=== PATIENT | male | born 1995 | race Caucasian/White ===

== ENCOUNTER 2020-09-24 04:17 | Emergency (ER) | payer MEDICAID, OTHER ==
[~2020-09-24] VITALS: Ht 190.5 cm; Wt 80.4 kg
[2020-09-24] MEDS ORDERED: LORazepam 2 MG/ML, 1ML ONE ×2 (04:46→06:12)
[2020-09-24] MEDS ORDERED: ONDANSETRON 2MG/ML, 2ML ONE (04:47)
--- NOTE | 2020-09-24 04:52 | NUR ---
patient arrived via EMS for vomiting x3 days. patient vague historian during triage. he is tremulous on arrival, clammy skin, and drowsy. he is oriented x4. states "danika been binge drinking and i know if i dont get help im going to be in trouble". patient reports falling multiple times at home the past few days including this morning. reports he is bipolar, not taking his medications since may, with schizoeffective tendencies. patient states he quit his job and then started drinking. he then, later in assessment, reports his vomitus at home has been dark. i questioned if his vomitus contained blood and he states "all i can tell you is it was dark". he also reports tarry/dark stools. later in assessment he reports having abdominal pain. i had asked patient if he had any abdominal pain with the nausea and he denied this claim. patient grimacing from time to time during assessment. guarding of abdomen at times, sitting up in bed and refusing to lay back down when asked to do so for safety measures. during EMS transit, patient had declined any interventions for his pain, N/V during transit. i placed an IV with patient's permission. labs were drawn and sent to lab. IVF started. Sonia CHANDLER to bedside for assessment. he states his last drink was ~2 hours [employer] and then states when asked by Sonia CHANDLER, "i drank right before I came here". call montoya in reach.
[2020-09-24 04:53] LABS: BASOPHILS % (AUTO) 1 % (0-1); EOSINOPHILS % (AUTO) 0 % (1-7); LYMPHOCYTES % (AUTO) 17 % (22-44); MEAN CORPUSCULAR HEMOGLOBIN 31.6 pg (27.5-34.5); MEAN CORPUSCULAR HGB CONC 34.7 g/dL (33.2-36.2); MEAN PLATELET VOLUME 6.9 fL (7.4-10.4); MONOCYTES % (AUTO) 9 % (2-9); NEUTROPHILS % (AUTO) 73 % (42-75); PLATELET COUNT 286 x10^3/uL (130-400); RED CELL DISTRIBUTION WIDTH 13.6 % (9.4-14.8)
[2020-09-24] MEDS ORDERED: LORazepam 2 MG/ML, 1ML IVPush ONE ×2 (05:00→06:30)
[2020-09-24] MEDS ORDERED: ONDANSETRON 2MG/ML, 2ML IVPush ONE (05:00)
[2020-09-24] MEDS ORDERED: THIAMINE 100MG TABLET PO ONE (05:00)
[2020-09-24] MEDS ORDERED: SODIUM CHLORIDE FLUSH 10ML SYR IVF ONE (05:00)
[2020-09-24] MEDS ORDERED: SODIUM CHLORIDE 0.9% 1,000ML IVBOLUS ONE ×2 (05:00→06:00)
[2020-09-24] MEDS ORDERED: PLEASE ENTER ALLERGIES MC SCH (05:00)
--- NOTE | 2020-09-24 05:02 | NUR ---
patient found to be 89% on RA after medication given. patient also laying in bed in odd position that may be contributing to this. 2L via NC applied to patient. O2 saturation increased to 96%. patient easily arousable at this time
[2020-09-24 05:04] LABS: ALANINE AMINOTRANSFERASE 29 U/L (12-78); ALBUMIN 4.7 g/dL (3.4-5.0); ANION GAP 15 mmol/L (5-15); CALCIUM 9.6 mg/dL (8.5-10.1); CHLORIDE 96 mmol/L (98-107); CREATININE 1.16 mg/dL (0.7-1.3)
[2020-09-24 05:06] LABS: ALKALINE PHOSPHATASE 126 U/L (45-117); BILIRUBIN,TOTAL 0.7 mg/dL (0.2-1.0); MD NO; TOTAL PROTEIN 8.6 g/dL (6.4-8.2)
--- NOTE | 2020-09-24 05:20 | NUR ---
water placed at bedside and RN requested patient try to drink some water. patient refusing to do PO challenge.
--- NOTE | 2020-09-24 05:52 | NUR ---
dr. sarabia and hina CHANDLER notified
[2020-09-24] MEDS ORDERED: METOCLOPRAMIDE 5 MG/ML, 2ML ONE (05:55)
[2020-09-24] MEDS ORDERED: METOCLOPRAMIDE 5 MG/ML, 2ML IVPush ONE (06:00)
[2020-09-24] MEDS ORDERED: PANTOPRAZOLE 40 MG IV ONE (06:12)
--- NOTE | 2020-09-24 06:25 | NUR ---
dr. sarabia and hina CHANDLER notified of patient continuing to have moderate tremors, dry heaves and not tolerating PO trial at this time. additional medication administered. VS remain stable on 1L via NC. patient easily arousable, moves all extremities, changes positon independently on gurney. bed rails up for safety. bed continues to be in trendelenberg for safety due to patient on arrival not following instruction to sit back in bed. call montoya in reach. urinal placed on bed rail in reach and patient notified of this being provided. will continue to monitor
[2020-09-24] MEDS ORDERED: THIAMINE 200 MG in SODIUM CHLORIDE 0.9% 50 ML IV ONE (06:30)
[2020-09-24] MEDS ORDERED: PANTOPRAZOLE 40 MG IV IVPush ONE (06:30)
--- NOTE | 2020-09-24 06:58 | NUR ---
bedside report recieved from Annia IBANEZ, VSS, NADN.
--- NOTE | 2020-09-24 06:58 | NUR ---
bedside report given to Lillie IBANEZ and Malinda IBANEZ
[2020-09-24] MEDS ORDERED: MAALOX/HYOSCYAMINE/LIDOCAINE 45 ML BTL PO ONE (07:30)
[2020-09-24] MEDS ORDERED: MAALOX/HYOSCYAMINE/LIDOCAINE 45 ML BTL ONE (07:33)
[2020-09-24 07:35] VITALS: BP 130/82
--- NOTE | 2020-09-24 07:36 | NUR ---
pt sitting up in bed, tolerating water, medicated per emar, vss, nadn.
--- NOTE | 2020-09-24 08:31 | NUR ---
Patient/Caregiver given discharge instructions and they have confirmed that they understand the instructions. Patient ambulatory with steady gait. Given candis mccartney and list of resources.
== END 2020-09-24 08:37 | disposition home or self-care (01) ==
LOC: ED 08:30
DX: K29.20 Alcoholic gastritis without bleeding (principal); F10.120 Alcohol abuse with intoxication, uncomplicated; R10.84 Generalized abdominal pain; R11.2 Nausea with vomiting, unspecified; Y90.0 Blood alcohol level of less than 20 mg/100 ml
CPT/HCPCS: 36415; 80053; 80320; 83690; 83735; 85025; 96361; 96365; 96375; 96376; 99285; C9113; J2060; J2405; J2765; J3411; J7030; G0480

== ENCOUNTER 2020-10-04 11:57 | Inpatient (IN) | payer MEDICAID ==
[~2020-10-04] VITALS: Ht 190.5 cm; Wt 80.0 kg
[2020-10-04] MEDS ORDERED: PROMETHAZINE 25 MG/ML, 1ML ONE (12:13)
--- NOTE | 2020-10-04 12:16 | NUR ---
PT BIB EMS FOR SI W/ SA ATTEMPT 2 DAYS AGO W/ INGESTION OF 10-20 SEROQUEL W/ ETOH. PT STATES "I WOKE UP IN MY LIVING ROOM THIS MORNING AND ASKED TO GO TO THE HOSPITAL." PT STATES HE INITIALLY WENT TO [facility] WHO SENT PT TO ED FOR MEDICAL CLEARANCE. DENIES ANY SUBSTANCE USE OR MEDICATION INGESTION TODAY. C/O HEADACHE AND GENERALIZED ABD PAIN FOR SEVERAL WEEKS. PT ALSO STATES "THE LAST 3 DAYS HAVE BEEN A BLUR. I CAN'T REALLY TELL YOU WHEN MY LAST DRINK WAS". PT NOTED TO BE SHAKING IN ROOM. ERP DR. KITCHEN AT BEDSIDE. UNABLE TO PERFORM EVAL PT HAD 1 BOUT EMESIS DURING ASSESSMENT. PT MEDICATED PER AUG.
[2020-10-04] MEDS ORDERED: PROMETHAZINE 25 MG/ML, 1ML IM ONE (12:30)
[2020-10-04 12:32] LABS: BASOPHILS % (AUTO) 0 % (0-1); EOSINOPHILS % (AUTO) 0 % (1-7); LYMPHOCYTES % (AUTO) 16 % (22-44); MEAN CORPUSCULAR HEMOGLOBIN 31.6 pg (27.5-34.5); MEAN CORPUSCULAR HGB CONC 33.9 g/dL (33.2-36.2); MONOCYTES % (AUTO) 5 % (2-9); NEUTROPHILS % (AUTO) 78 % (42-75); PLATELET COUNT 284 x10^3/uL (130-400); RED BLOOD COUNT 5.17 x10^6/uL (4.38-5.82); RED CELL DISTRIBUTION WIDTH 14.7 % (9.4-14.8)
[2020-10-04 12:36] LABS: MD NO
[2020-10-04 12:43] LABS: ALBUMIN 4.3 g/dL (3.4-5.0); ANION GAP 10 mmol/L (5-15); CALCIUM 8.9 mg/dL (8.5-10.1); CHLORIDE 105 mmol/L (98-107)
[2020-10-04 12:46] LABS: ALANINE AMINOTRANSFERASE 30 U/L (12-78); ALKALINE PHOSPHATASE 111 U/L (45-117); BILIRUBIN,TOTAL 0.3 mg/dL (0.2-1.0); CREATININE 1.05 mg/dL (0.7-1.3); SALICYLATE LEVEL < 1.7 mg/dL (2.8-20.0); TOTAL PROTEIN 8.1 g/dL (6.4-8.2)
[2020-10-04] MEDS ORDERED: METOCLOPRAMIDE 5 MG/ML, 2ML ONE (13:36)
--- NOTE | 2020-10-04 13:50 | NUR ---
IV ESTABLISHED, FLUIDS INFUSING. MEDICATED W REGLAN FOR NAUSEA
[2020-10-04] MEDS ORDERED: ONDANSETRON ODT 4 MG PO ONE (14:00)
[2020-10-04] MEDS ORDERED: SODIUM CHLORIDE 0.9% 1,000ML IVBOLUS ONE (14:00)
[2020-10-04] MEDS ORDERED: LORazepam 1MG TABLET PO ONE (14:00)
[2020-10-04] MEDS ORDERED: METOCLOPRAMIDE 5 MG/ML, 2ML IVPush ONE (14:00)
[2020-10-04] MEDS ORDERED: ONDANSETRON ODT 4 MG ONE (14:19)
[2020-10-04] MEDS ORDERED: LORazepam 1MG TABLET ONE (14:22)
--- NOTE | 2020-10-04 14:28 | NUR ---
BREAK RN. PT MEDICATED FOR NAUSEA AND AGITATION. VSS. COOPERATIVE.
[2020-10-04] MEDS ORDERED: LORazepam 2 MG/ML, 1ML IVPush ONE (15:00)
[2020-10-04] MEDS ORDERED: LORazepam 2 MG/ML, 1ML ONE (15:02)
--- NOTE | 2020-10-04 15:09 | NUR ---
PT AGITATED, RESTLESS. GAVE ATIVAN PER ORDERS
[2020-10-04] MEDS ORDERED: BENZTROPINE 1 MG TABLET PO ONE (15:30)
--- NOTE | 2020-10-04 15:30 | NUR ---
EKG IN PROCESS
[2020-10-04] MEDS ORDERED: BENZTROPINE 1 MG TABLET ONE (15:31)
[2020-10-04] MEDS ORDERED: CHLORDIAZEPOXIDE 25 MG CAPSULE ONE (15:37)
[2020-10-04] MEDS ORDERED: CHLORDIAZEPOXIDE 25 MG CAPSULE PO PRN ×2 (16:00→17:00)
--- NOTE | 2020-10-04 16:12 | NUR ---
MEDICATED PER ORDERS. PT RESTING, LESS RESTLESS
[2020-10-04] MEDS ORDERED: ONDANSETRON 2MG/ML, 2ML ONE (17:35)
[2020-10-04] MEDS ORDERED: MAALOX/HYOSCYAMINE/LIDOCAINE 45 ML BTL ONE (17:54)
[2020-10-04] MEDS ORDERED: ONDANSETRON 2MG/ML, 2ML IVPush ONE (18:00)
[2020-10-04] MEDS ORDERED: MAALOX/HYOSCYAMINE/LIDOCAINE 45 ML BTL PO ONE (18:00)
--- NOTE | 2020-10-04 18:08 | NUR ---
MEDICATED FOR NAUSEA, AND GI COCKTAIL.
--- NOTE | 2020-10-04 18:45 | NUR ---
REPORT TO EDMUNDO
--- NOTE | 2020-10-04 18:47 | NUR ---
REPORT FROM [facility]OWN. TRANSFER OF CARE
--- NOTE | 2020-10-04 19:17 | NUR ---
PT RESTING ON ANKIT ALMAZAN, SITTER IN SIGHT.
--- NOTE | 2020-10-04 19:26 | NUR ---
REPORT TO HAL IBANEZ PT READY FOR TRANSFER TO [facility]
[2020-10-04] MEDS ORDERED: SEROQUEL PO (19:29)
[2020-10-04] MEDS ORDERED: LORazepam 0.5MG TABLET PO PRN (20:00)
[2020-10-04] MEDS ORDERED: DOCUSATE 100 MG CAPSULE PO PRN (20:00)
[2020-10-04] MEDS ORDERED: LORazepam 2 MG/ML, 1ML IV PRN ×5 (20:00)
[2020-10-04] MEDS ORDERED: OXYcodone IR 5MG TABLET PO PRN (20:00)
[2020-10-04] MEDS ORDERED: POTASSIUM CHLORIDE 20 MEQ, MAGNESIUM SULFATE 2 GM, THIAMINE 200 MG, MVI ADULT 10 ML, FO... IV SCH (20:00)
[2020-10-04] MEDS ORDERED: POLYETHYLENE GLYCOL 17 GM PACKET PO PRN (20:00)
[2020-10-04] MEDS ORDERED: hydrALAzine 20 MG/ML, 1ML IVPush PRN (20:00)
[2020-10-04] MEDS ORDERED: BISACODYL 10 MG SUPP PR PRN (20:00)
[2020-10-04] MEDS ORDERED: PROMETHAZINE 25 MG/ML, 1ML IM PRN (20:00)
[2020-10-04] MEDS ORDERED: LORazepam 1MG TABLET PO PRN ×4 (20:00)
[2020-10-04 20:06] VITALS: BP 127/75
[2020-10-04] MEDS ORDERED: POTASSIUM CHLORIDE 20 MEQ, MAGNESIUM SULFATE 2 GM, THIAMINE 200 MG, FOLIC ACID 1 MG in ... IV SCH (20:15)
[2020-10-04] MEDS: BENZTROPINE 1 MG TABLET PO SCH ×2 (21:00→22:39)
[2020-10-05] MEDS ORDERED: MAALOX/HYOSCYAMINE/LIDOCAINE 45 ML BTL PO ONE (04:00)
[2020-10-05 06:07] LABS: BASOPHILS % (AUTO) 0 % (0-1); EOSINOPHILS % (AUTO) 0 % (1-7); LYMPHOCYTES % (AUTO) 17 % (22-44); MEAN CORPUSCULAR HEMOGLOBIN 31.4 pg (27.5-34.5); MEAN CORPUSCULAR HGB CONC 33.5 g/dL (33.2-36.2); MEAN PLATELET VOLUME 7.2 fL (7.4-10.4); MONOCYTES % (AUTO) 12 % (2-9); NEUTROPHILS % (AUTO) 71 % (42-75); PLATELET COUNT 236 x10^3/uL (130-400); RED BLOOD COUNT 4.69 x10^6/uL (4.38-5.82); RED CELL DISTRIBUTION WIDTH 14.1 % (9.4-14.8)
[2020-10-05 06:13] LABS: ANION GAP 6 mmol/L (5-15); CALCIUM 8.8 mg/dL (8.5-10.1); CHLORIDE 105 mmol/L (98-107)
[2020-10-05 06:22] LABS: MD NO
[2020-10-05 06:27] LABS: ALANINE AMINOTRANSFERASE 28 U/L (12-78); ALBUMIN 3.9 g/dL (3.4-5.0); ALKALINE PHOSPHATASE 99 U/L (45-117); BILIRUBIN,TOTAL 0.8 mg/dL (0.2-1.0); CHOL/HDL RATIO 1.7; CHOLESTEROL, TOTAL 142 mg/dL (140-239); CREATININE 1.04 mg/dL (0.7-1.3); HDL CHOL % 59 % (26-37); HDL CHOLESTEROL (DIRECT) 84 mg/dL (40-60); LDL CHOLESTEROL,CALCULATED 45 mg/dL (54-169); LDL/HDL RATIO 0.5 (0.5-3.0); TOTAL PROTEIN 7.4 g/dL (6.4-8.2); TRIGLYCERIDES 64 mg/dL (50-200); VLDL CHOLESTEROL 13 mg/dL (0-25)
[2020-10-05 07:50] VITALS: BP 151/76
[2020-10-05] MEDS: BENZTROPINE 1 MG TABLET PO SCH ×2 (09:31→09:47)
[2020-10-05] MEDS ORDERED: POTASSIUM CHLORIDE 40 MEQ in SODIUM CHLORIDE 0.9% 500 ML IV ONE (10:30)
[2020-10-05] MEDS ORDERED: LORazepam 1MG TABLET PO SCH (11:00)
[2020-10-05] MEDS ORDERED: THIAMINE 100 MG in SODIUM CHLORIDE 0.9% 50 ML IV SCH (11:10)
[2020-10-05] MEDS ORDERED: PANTOPRAZOLE 40 MG IV IVPush SCH (12:30)
[2020-10-05] MEDS ORDERED: PROMETHAZINE 25 MG/ML, 1ML IM PRN (12:30)
== END 2020-10-05 13:29 | disposition left against medical advice (07) | DRG 918 ==
LOC: ED 14:18 → EDIP 18:06 → 4EST 19:37
PROVIDERS: ADMIT Internal Medicine; ATTEND Internal Medicine
DX: T43.592A Poisoning by other antipsychotics and neuroleptics, intentional self-harm, initial encounter (principal); F31.81 Bipolar II disorder; R45.851 Suicidal ideations; F10.139 Alcohol abuse with withdrawal, unspecified; F17.210 Nicotine dependence, cigarettes, uncomplicated; Z91.14 Patient's other noncompliance with medication regimen; Y92.89 Other specified places as the place of occurrence of the external cause
CPT/HCPCS: 36415; 80053; 80061; 80299; 80320; 80329; 83036; 83735; 84100; 84443; 85025; 93005; 96372; G0378; J2405; J2550; Q0162; G0480; J2060; J2765; J7030

== ENCOUNTER 2020-10-05 14:06 | Emergency (ER) | payer MEDICAID ==
[~2020-10-05] VITALS: Ht 185.4 cm; Wt 80.0 kg
[~2020-10-05 14:06] MED LIST: SEROQUEL PO
[2020-10-05] MEDS ORDERED: MIDAZOLAM 1 MG/ML, 2ML ONE ×2 (14:22→15:59)
[2020-10-05] MEDS ORDERED: PLEASE ENTER HEIGHT AND WEIGHT MC SCH (14:30)
[2020-10-05] MEDS ORDERED: MIDAZOLAM 1 MG/ML, 5ML IM ONE (14:30)
--- NOTE | 2020-10-05 14:32 | NUR ---
PATIENT ARRIVED LOOKING FOR BELONGINGS AFTER ELOPING FROM MEDICAL TELEMETRY THIS MORNING. PATIENT OD'D ON SEROQUEL 2 DAYS AGO AND REPORTED DRINKING FOR TWO WEEKS, WAS PLACED ON LEGAL HOLD UPSTAIRS AND WAS MEDICALLY CLEARED AND READY FOR TRANSFER TO [facility] WHEN HE ELOPED. PER PATIENT HE WENT TO [place] THIS MORNING AND THEN CAME HERE. PATIENT AGITATED, ON LEGAL HOLD, PLACED IN 4 POINT LEATHER RESTRAINTS. UNABLE TO GET VITALS ON PATIENT. PATIENT ROCKING IN GURNEY YELLING AND SPITTING, UNABLE TO EVALUATE AT THIS TIME. 5 OF VERSED GIVEN IM.
[2020-10-05] MEDS ORDERED: KETAMINE 100 MG/ML, 5ML IM ONE (14:58)
[2020-10-05] MEDS ORDERED: KETAMINE 10 MG/ML, 20ML ONE (15:00)
--- NOTE | 2020-10-05 15:01 | NUR ---
PT EXTREMELY AGITATED, CONTINUOUSLY YELLING AND TRYING TO ROLL GURNEY. IN 4 POINT RESTRAINTS. PT HAD BOWEL MOVEMENT ON GURNEY. MD MASTERS AND ORDER TO BE RECEIVED FOR ADDITIONAL MEDICATIONS.
--- NOTE | 2020-10-05 15:16 | NUR ---
AWAITING PHARMACY TO MAKE CONCENTRATED DOSE OF KETAMINE ORDERED.STAFF REMAIN NEARBY MONITORING PT FOR SAFETY. PT ATTEMPTS TO BITE, SPITS WHEN GETTING INTO PT'S SPACE. UNABLE TO DRAW BLOOD AT THIS TIME.
--- NOTE | 2020-10-05 15:18 | NUR ---
CORBY IBANEZ RETURNED FROM BREAK AND REPORT GIVEN
--- NOTE | 2020-10-05 15:24 | NUR ---
FIDEL, AUTOMOTIVE ALIGNMENT SPECIALIST AT BEDSIDE FOR EVALUATION.
--- NOTE | 2020-10-05 15:47 | NUR ---
pt too uncooperative to attempt EKG.
--- NOTE | 2020-10-05 15:48 | NUR ---
PATIENT MEDICATED WITH 300 MG OF KETAMINE IM, PATIENT THREW HIMSELF OFF OF [place] WITH RESTRAINTS ON, SECURITY CALLED AND ASSISTED PATIENT BACK TO [facility] AND READJUSTED RESTRAINTS. PATIENT NOW RESTING IN [place], HAS CALMED DOWN, NO SCREAMING OR SPITTING, FREQUENT ROUNDING IN PLACE.
--- NOTE | 2020-10-05 15:51 | NUR ---
CONNECTED TO PULSE OX.
[2020-10-05] MEDS ORDERED: MIDAZOLAM 1 MG/ML, 2ML IM ONE (16:00)
--- NOTE | 2020-10-05 16:08 | NUR ---
PATIENT MEDICATED PER eMAR, VSS, EKG AND LABS DONE. PATIENT STRAIGHT CATHED FOR URINE SAMPLE, PATIENT TOLERATED WELL, URINE WALKED TO LAB. Addendum: 10/05/20 at 1612 by [email or web address] URINE DARK ADRIANA COLORED, SOME BLOOD NOTED IN URINE.
[2020-10-05 16:10] LABS: BASOPHILS % (AUTO) 0 % (0-1); EOSINOPHILS % (AUTO) 0 % (1-7); LYMPHOCYTES % (AUTO) 7 % (22-44); MEAN CORPUSCULAR HEMOGLOBIN 31.9 pg (27.5-34.5); MEAN CORPUSCULAR HGB CONC 33.9 g/dL (33.2-36.2); MEAN PLATELET VOLUME 7.2 fL (7.4-10.4); MONOCYTES % (AUTO) 9 % (2-9); NEUTROPHILS % (AUTO) 84 % (42-75); PLATELET COUNT 263 x10^3/uL (130-400); RED BLOOD COUNT 5.18 x10^6/uL (4.38-5.82)
[2020-10-05 16:11] LABS: MD NO
[2020-10-05 16:20] LABS: ALBUMIN 4.6 g/dL (3.4-5.0); ANION GAP 12 mmol/L (5-15); CALCIUM 9.3 mg/dL (8.5-10.1); CHLORIDE 103 mmol/L (98-107); CREATININE 1.51 mg/dL (0.7-1.3); SALICYLATE LEVEL < 1.7 mg/dL (2.8-20.0)
[2020-10-05] MEDS ORDERED: SODIUM CHLORIDE FLUSH 10ML SYR IVF ONE (16:30)
[2020-10-05] MEDS ORDERED: SODIUM CHLORIDE 0.9% 1,000ML IVBOLUS ONE (16:30)
[2020-10-05 16:39] LABS: AMPHETAMINE SCREEN, URINE Negative (Negative); BARBITURATE SCREEN, URINE Negative (Negative); BENZODIAZEPINE SCREEN, URINE Positive (Negative); METHADONE SCREEN, URINE Negative (Negative)
[2020-10-05 16:42] LABS: CANNABINOID SCREEN, URINE Positive (Negative); COCAINE SCREEN, URINE Negative (Negative); OPIATE SCREEN, URINE Negative (Negative)
[2020-10-05 16:51] LABS: MICROSCOPIC INDICATED
[2020-10-05] MEDS ORDERED: OLANZAPINE 10 MG INJ IM ONE ×2 (16:52→16:56)
--- NOTE | 2020-10-05 17:06 | NUR ---
PATIENT STARTING TO GET AGITATED AGAIN, YELLING AND BITE THROUGH WRIST BAND, SPOKE WITH ERMD, MEDICATION ORDERED AND PATIENT MEDICATED PER eMAR. SIDE RAILS UP X2, PATIENT IN 4 POINT RESTRAINTS, SITTER IN LINE OF SIGHT.
--- NOTE | 2020-10-05 17:12 | NUR ---
SECURITY CALLED TO COME REPOSITION RIGHT ARM RESTRAINT PER PATIENT REQUEST.
--- NOTE | 2020-10-05 17:29 | NUR ---
TASK RN: RE-EVALUATING PT
[2020-10-05] MEDS ORDERED: LORazepam 2 MG/ML, 1ML ONE (17:57)
[2020-10-05] MEDS ORDERED: LORazepam 2 MG/ML, 1ML IV STA (17:57)
--- NOTE | 2020-10-05 18:39 | NUR ---
PATIENT STUCK HIS FINGER DOWN HIS THROAT TO MAKE HIMSELF THROW-UP, PATIENT THREW UP BILE LOOKING EMESIS ON FLOOR. FLOOR CLEANED UP, PATIENT STILL IN 4-POINT RESTRAINTS, SITTER IN LINE OF SIGHT.
[2020-10-05] MEDS ORDERED: ZIPRASIDONE 20 MG INJ IM ONE ×2 (19:04→20:00)
--- NOTE | 2020-10-05 19:45 | NUR ---
TP: PACKET FAXED TO [facility]. THEY WILL LOOK AT IT AND GET BACK TO US ON ACCEPTANCE
--- NOTE | 2020-10-05 19:57 | NUR ---
PT ACTING UP SPITTING TOWARD STAFF. PT HAD A BOWEL MOVEMENT ON BED ON PURPOSE. PT THREATING STAFF. PROVIDER AWARE OF PT QTC PROLONGATION OF "[phone]" PER OFF GOING STAFF. PT MEDICATED PER MAR PER PROVIDER ORDER.
--- NOTE | 2020-10-05 20:10 | NUR ---
TP: PACKET FAXED TO [facility]
--- NOTE | 2020-10-05 21:42 | NUR ---
PT RESTING IN BED, PT ON MONITOR WITH PT ROOM SI SECURE WITH SITTER AT PT BEDSIDE. PT IN RESTRAINTS STILL DUE TO PT THREATING BEHAVIOR. PT ALSO STILL CURSING AT STAFF
--- NOTE | 2020-10-05 22:02 | NUR ---
PT HAD ONE LEG AND ONE ARM RESTRAINT REMOVED
--- NOTE | 2020-10-05 22:03 | NUR ---
PT ACTING MORE APPROPRIATE WITH STAFF.
--- NOTE | 2020-10-06 00:15 | NUR ---
TP: [facility] NOT ABLE TO TAKE PT. [facility] IS [facility]
--- NOTE | 2020-10-06 01:24 | NUR ---
PT RESTING IN BED, PT ON MONITOR WITH PT ROOM SI SECURE WITH SITTER AT PT BEDSIDE.
[2020-10-06] MEDS ORDERED: PROMETHAZINE 25 MG/ML, 1ML ONE (03:39)
--- NOTE | 2020-10-06 03:41 | NUR ---
TASK RN: PT MEDICATED WITH 25MG PHENERGAN IM PER DR KEMP. PT IS VOMITING ON FLOOR. SECURITY CALLED TO ASSIST WITH RESTRAINTS
--- NOTE | 2020-10-06 04:02 | NUR ---
ALL PT REMAINING RESTRANTS REMOVED. PT PLACED IN FLOOR BED.
--- NOTE | 2020-10-06 05:33 | NUR ---
RN SPOKE WITH KYA FROM [facility] THAT SAID THEY WILL CALL BACK WHEN THERE DAY DR GETS IN AROUND 8 AM
--- NOTE | 2020-10-06 06:32 | NUR ---
PT RESTING IN BED, PT ON MONITOR WITH PT ROOM SI SECURE WITH SITTER AT PT BEDSIDE.
--- NOTE | 2020-10-06 07:09 | NUR ---
REPORT TO JAMAL IBANEZ
--- NOTE | 2020-10-06 07:10 | NUR ---
report received from john uriostegui.
--- NOTE | 2020-10-06 07:21 | NUR ---
room secure. vss. pt sleeping in hospital bed at this time. sitter monitoring from [facility].
--- NOTE | 2020-10-06 09:07 | NUR ---
pt sleeping in hospital bed at this time. diet tray provided.
--- NOTE | 2020-10-06 09:55 | NUR ---
pt woke up and stated"why i'm here. i need to leave. i have animals at home and need to feed them. i need to staff psychiatrist nina" pt is agitated at this time.
--- NOTE | 2020-10-06 09:56 | NUR ---
plowing gardens at bedside to evaluate at this time.
--- NOTE | 2020-10-06 11:04 | NUR ---
Covering for primary RN: Pt found sitting up in hospital bed and throwing up into emesis bag. Pt requests a GI Cocktail. notified.
[2020-10-06] MEDS ORDERED: MAALOX/HYOSCYAMINE/LIDOCAINE 45 ML BTL ONE (11:09)
--- NOTE | 2020-10-06 11:12 | NUR ---
Task RN: GI cocktail orders received and medical assistant done now. Pt requesting a shower today.
--- NOTE | 2020-10-06 11:21 | NUR ---
Report receivded for meal break coverage from SHAMAR Strickland and care assumed for break period only.
[2020-10-06] MEDS ORDERED: MAALOX/HYOSCYAMINE/LIDOCAINE 45 ML BTL PO ONE (11:30)
[2020-10-06 12:04] VITALS: BP 120/70
== END 2020-10-06 12:06 | disposition home or self-care (01) ==
LOC: ED 18:14
DX: R45.851 Suicidal ideations (principal); F31.5 Bipolar disorder, current episode depressed, severe, with psychotic features; F23 Brief psychotic disorder; I45.10 Unspecified right bundle-branch block
CPT/HCPCS: 36415; 80048; 80299; 80307; 80320; 81001; 82040; 82550; 85025; 93005; 96361; 96372; 96374; 99285; J2060; J2250; J3486; J7030; 80329; G0480